=== PATIENT | male | born 1955 | race Caucasian/White ===

== ENCOUNTER 2021-11-06 01:24 | Day surgery (SDC) | payer MEDICARE, SELFPAY ==
[2021-10-24 13:11] VITALS: BMI 29.4
--- NOTE | 2021-11-05 17:07 | PM.HPGS ---
History of Present Illness History of Present Illness Consent: Risks, benefits, and alternatives have been discussed and questions answered. Patient agrees to proceed with procedure. Chief complaint: family hx of colon ca Narrative: Won Dao is a 66 year old male With a family history of colon cancer. His brother had colon Review of Systems Review of Systems: All systems reviewed & are unremarkable except as noted in HPI and below PMFSH Past Medical History Medical History Anxiety Hepatitis C antibody test negative (05/23/17) Obesity (BMI 30.0-34.9) Family History Family History Father Diabetes mellitus Hypertension Family history of cardiovascular disease Mother Diabetes mellitus Hypertension Family history of cardiovascular disease Sibling Family history of cardiovascular disease Carcinoma of colon Social History Social History Smoking status: Never smoker Alcohol intake: current Drinks per week: 4 Substance use type: does not use Living arrangements: with family Spiritual care concerns: No Meds Home Medications and Allergies Home Medications Medication Instructions Recorded Confirmed Type aspirin 81 mg tablet,delayed 81 mg PO DAILY 08/01/19 11/06/21 History release niacin 500 mg tablet 1,500 mg PO DAILY tablet 12/14/20 11/06/21 History amlodipine 5 mg-olmesartan 40 mg 1 tablet PO DAILY #90 tablet 07/17/21 11/06/21 Rx tablet hydrochlorothiazide 12.5 mg tablet 12.5 mg PO DAILY #90 tablet 07/17/21 11/06/21 Rx tamsulosin 0.4 mg capsule See Rx Instructions .ROUTE 07/17/21 11/06/21 Rx .COMPLEX #90 cap alprazolam 0.25 mg tablet 0.25 mg PO BID 90 Days #180 tablet 09/19/21 11/06/21 Rx Allergies Allergy/AdvReac Type Severity Reaction Status Date / Time loracarbef Allergy Unknown Flushing Verified 11/06/21 09:24 LORABIDE Allergy Unknown Flushing Uncoded 11/06/21 09:24 Exam Resp: Auscultation: clear to auscultation bilaterally Cardio: Rate: regular rate Rhythm: regular rhythm GI: GI Palp: Yes Soft to palpation and No Tenderness to palpation present (GI) Assessment and Plan Assessment and plan (1) Colon cancer screening: Code(s): Z12.11 - Encounter for screening for malignant neoplasm of colon Status: Acute Assessment and Plan: Colonoscopy with possible biopsy or polypectomy or cautery or injection of substances.
[2021-11-06 09:25] VITALS: BP 137/76; PULSE 83; RESP 18; TEMP 36.3; O2SAT 99
[2021-11-06] MEDS: LACTATED RINGERS 1,000 ML 150 ML IV CONT (09:35)
--- NOTE | 2021-11-06 09:56 | P.PNAN_ITS ---
Anes - Initial Pre Proc Eval Procedure: Operation Date: 11/06/21 10:45 Proposed Procedures p Screening Colonoscopy - Gary Snider MD Date/Time: 11/06/21 09:56 Surgeon: Gary Snider MD Pre Op Diagnosis: family hx of colon ca Patient Data Age: 66 Gender: M Height: 1.78 m Weight: 93.4 kg Last Vital Signs Temp 97.4 F L 11/06/21 09:25 Pulse 83 11/06/21 09:25 Resp 18 11/06/21 09:25 BP 137/76 11/06/21 09:25 Pulse Ox 99 11/06/21 09:25 Allergies Allergy/AdvReac Type Severity Reaction Status Date / Time loracarbef Allergy Unknown Flushing Verified 11/06/21 09:24 LORABIDE Allergy Unknown Flushing Uncoded 11/06/21 09:24 Home Medications Medication Instructions Recorded Confirmed Type aspirin 81 mg tablet,delayed 81 mg PO DAILY 08/01/19 11/06/21 History release niacin 500 mg tablet 1,500 mg PO DAILY tablet 12/14/20 11/06/21 History amlodipine 5 mg-olmesartan 40 mg 1 tablet PO DAILY #90 tablet 07/17/21 11/06/21 Rx tablet hydrochlorothiazide 12.5 mg tablet 12.5 mg PO DAILY #90 tablet 07/17/21 11/06/21 Rx tamsulosin 0.4 mg capsule See Rx Instructions .ROUTE 07/17/21 11/06/21 Rx .COMPLEX #90 cap alprazolam 0.25 mg tablet 0.25 mg PO BID 90 Days #180 tablet 09/19/21 11/06/21 Rx Patient hx anesthesia problems: none Family hx anesthesia problems: none Results Review: All pre-operative results and documents have been reviewed as part of the pre-operative evaluation. [facility] Past Medical History Medical History (Updated 11/05/21 @ 17:07 by Gary Snider MD) Anxiety Hepatitis C antibody test negative (05/23/17) Obesity (BMI 30.0-34.9) Family History Family History Father Diabetes mellitus Hypertension Family history of cardiovascular disease Mother Diabetes mellitus Hypertension Family history of cardiovascular disease Sibling Family history of cardiovascular disease Carcinoma of colon Social History Social History (Updated 07/08/21 @ 11:32 by So Urrutia PA-C) Smoking status: Never smoker Alcohol intake: current Drinks per week: 4 Substance use type: does not use Living arrangements: with family Spiritual care concerns: No Anes - Eval Final PreProcedure Day of Procedure 11/06/21 09:56 Patient weight: obese Heart: regular rate and rhythm Lungs: clear to auscultation Airway: Mallampati scale class II Neurological: alert and oriented Last oral intake: >/= 8 hours ASA classification: II Emergent: no Anesthetic plan: proceed Anesthesia type and monitoring: general GIVS and standard monitoring Results Review: All pre-operative results and documents have been reviewed as part of the pre-operative evaluation. Informed Consent: The patient's anesthetic plan and its attendant risks and benefits were discussed with the patient/family/POA. Questions were solicited and answers provided to the satisfaction of the patient/family/POA.
[2021-11-06 10:34] VITALS: BP 114/69; PULSE 78; RESP 18; O2SAT 96
[2021-11-06 10:44] VITALS: BP 126/77; PULSE 78; RESP 20; O2SAT 98
[2021-11-06 10:54] VITALS: BP 152/95; PULSE 74; RESP 18; O2SAT 98
== END 2021-11-06 11:11 | disposition home or self-care (01) ==
PROVIDERS: PCP Family Medicine; Visit Provider Internal Medicine Gastroenterology
PROC: 0DJD8ZZ Inspection of Lower Intestinal Tract, Via Natural or Artificial Opening Endoscopic (ICD-10-PCS; CPT 45378; principal; 2021-11-06 10:45)
DX: Z12.11 Encounter for screening for malignant neoplasm of colon (principal); K57.30 Diverticulosis of large intestine without perforation or abscess without bleeding; Z80.0 Family history of malignant neoplasm of digestive organs; F41.9 Anxiety disorder, unspecified; Z79.82 Long term (current) use of aspirin; E66.9 Obesity, unspecified; Z68.29 Body mass index [BMI] 29.0-29.9, adult
CPT/HCPCS: G0105; J2704; J7120

== ENCOUNTER 2023-07-03 08:32 | Outpatient (CLI) | payer MEDICARE, SELFPAY ==
[2023-07-03 15:03] LABS: Basophils Percent Auto 0.4 % (0.2-1.2); Eosinophils Absolute Auto 0.2 K/mm3 (0-0.3); Eosinophils Percent Auto 2.9 % (0-4.4); Hematocrit 46.9 % (42.0-52.0); Immature Granulocyte Absolute 0.02 K/mm3 (0.00-0.031); Immature Granulocyte Percent A 0.3 % (0-0.5); Lymphocytes Absolute Auto 2.37 K/mm3 (0.9-3.2); Lymphocytes Percent Auto 32.8 % (18.3-44.2); Mean Corpuscular Hemoglobin 31.4 pg (26-34); Mean Corpuscular Volume 98.1 fl (80-100); Mean Platelet Volume 10.4 fl (7.4-10.4); Monocytes Absolute Auto 0.6 K/mm3 (0.1-0.6); Monocytes Percent Auto 8.9 % (2.6-8.5); Neutrophils Percent Auto 54.7 % (45.5-73.1); Platelet Count Result 228 k/mm3 (150-375); Red Blood Count 4.78 M/mm3 (4.6-6.20); Red Cell Distribution Width 13.7 % (11.5-14.5); White Blood Count 7.2 K/mm3 (4.5-10.0)
[2023-07-03 18:08] LABS: Alanine Aminotransferase 24 U/L (6-50); Albumin Level 4.5 g/dL (3.5-5.1); Alkaline Phosphatase 54 U/L (38-126); Anion Gap 8 mmol/L (8-16); Aspartate Amino Transferase 41 U/L (17-59); Bilirubin,Total 0.5 mg/dL (0.2-1.3); Blood Urea Nitrogen 21 mg/dL (9-20); Calcium 9.6 mg/dL (8.4-10.2); Carbon Dioxide 29 mmol/L (22-30); Chloride 100 mmol/L (98-107); Cholesterol 223 mg/dL (0-200); Estimated Glomerular Filt Rate > 60; Glucose 86 mg/dL (65-110); HDL Direct 60 mg/dL; Potassium 3.9 mmol/L (3.4-5.0); Sodium 137 mmol/L (137-145); Triglycerides 229 mg/dL (<150)
[2023-07-03 18:18] LABS: LDL Cholesterol Direct 98 mg/dL
== END 2023-07-03 08:33 | disposition home or self-care (01) ==
LOC: ANHGOSHLAB 08:34
PROVIDERS: PCP Family Medicine; Visit Provider Nurse Practitioner Family
DX: E78.2 Mixed hyperlipidemia (principal); E88.810 Metabolic syndrome; R74.8 Abnormal levels of other serum enzymes; Z82.49 Family history of ischemic heart disease and other diseases of the circulatory system
CPT/HCPCS: 36415; 80053; 80061; 84443; 85025